=== PATIENT | female | born 1995 | race Caucasian/White ===

== ENCOUNTER → 2017-10-10 09:13 | Outpatient (CLI) | payer BC, SELFPAY ==
--- NOTE | 2017-10-10 09:18 | RAD_ITS ---
STUDY: X-RAY - RIGHT WRIST REASON FOR EXAM: Female, 21 years old. Strain TECHNIQUE: 3 view(s) of the wrist were obtained. COMPARISON: Prior study of 06/08/2013 FINDINGS: Normal visualized distal radius and ulna. Normal radiocarpal articulation. Normal distal radioulnar articulation. Normal carpal bones. Normal carpal articulations. Normal carpometacarpal articulation of the thumb. Normal second through fifth carpometacarpal articulations. Normal visualized metacarpal bones. The soft tissue structures are unremarkable. RAD/Wrist min 3 Views IMPRESSION: Normal x-ray examination of the wrist. Electronically Signed: Deshawn Norman MD at 17:44 EDT , Service support ,
--- NOTE | 2017-10-10 09:18 | RAD_ITS ---
STUDY: X-RAY - LEFT WRIST REASON FOR EXAM: Female, 21 years old. Strain TECHNIQUE: 3 view(s) of the wrist were obtained. COMPARISON: None. FINDINGS: Normal visualized distal radius and ulna. Normal radiocarpal articulation. Normal distal radioulnar articulation. Normal carpal bones. Normal carpal articulations. Normal carpometacarpal articulation of the thumb. Normal second through fifth carpometacarpal articulations. Normal visualized metacarpal bones. The soft tissue structures are unremarkable. RAD/Wrist min 3 Views IMPRESSION: Normal x-ray examination of the wrist. Electronically Signed: Deshawn Norman MD at 16:56 EDT , Service support ,
== END ==
PROVIDERS: Family Provider Internal Medicine; PCP Internal Medicine; Visit Provider Internal Medicine
DX: M25.539 Pain in unspecified wrist (principal)
CPT/HCPCS: 73110

== ENCOUNTER → 2018-01-13 16:40 | Outpatient (CLI) | payer BC, SELFPAY ==
--- NOTE | 2018-01-13 14:45 | BRBX_PTH ---
PATIENT: ELLEN BENOIT LOC: [facility] U#:[id number] AGE/SX: 29/F ROOM: RE01/13/[address]: Dr. Vin Moore MD : 1995 BED: DIS: SPEC #: [id number] RECD: 01/14/18 08:01 STATUS: KRISTAN SORAYA #: [id number] APURVA: 01/13/18 14:[address]: Vin Moore DEPT: SURGICAL PATHOLOGY RECD BY: Russell Albarado ENTERED: 01/14/18 08:02 SP TYPE: BREAST BX OTHR DR: Dr. Samira Johnson DO Tissues: Left breast, NOS Procedures: Surgery Specimen Level IV HEADER OPERATION: Left breast core biopsy PRE-OP DIAGNOSIS: Left breast abnormal ultrasound TISSUE SUBMITTED: Left breast tissue ISHCMIC TIME: <1 minute FIXATION TIME: 28 hours MICROSCOPIC DIAGNOSIS Left breast, ultrasound-guided core biopsy: Fibroadenoma. AM:bradley 01/16/18 MICROSCOPIC DESCRIPTION Slides are reviewed. GROSS DESCRIPTION Received in fixative is one container labeled with the patient's name and designated left breast. The specimen consists of multiple elongated fragments of benitez soft tissue that in aggregate measure 1 x 0.2 x 0.2 cm. The specimen is totally submitted in one cassette. / AM:bradley 01/14/18 TC:5 CPT: 02193
== END ==
PROVIDERS: Family Provider Internal Medicine; PCP Internal Medicine; Visit Provider Surgery
DX: R92.8 Other abnormal and inconclusive findings on diagnostic imaging of breast (principal)
CPT/HCPCS: 88305

== ENCOUNTER → 2018-02-18 15:23 | Outpatient (CLI) | payer BC, SELFPAY ==
--- NOTE | 2018-02-18 15:27 | RAD_ITS ---
STUDY: X-RAY - PELVIS AND LEFT HIP REASON FOR EXAM: Left hip pain. TECHNIQUE: Radiological exam, hip, unilateral, with pelvis when performed; 2 or 3 views. COMPARISON: Radiographs 05/08/2013. FINDINGS: Normal visualized soft tissue structures. Normal bilateral iliac wings, sacroiliac joints and visualized sacrum. Normal bilateral superior and inferior pubic rami. Normal pubic symphysis. Normal bilateral ischial tuberosities. There are suspected postoperative changes from left femoral osteochondroplasty. Normal acetabulum. Normal hip joint. IMPRESSION Unremarkable postoperative x-ray examination of the pelvis and left hip. Electronically Signed: Abel Headley MD at 15:11 EDT Tel , Service support , RAD/HIP, UNI W/ Pelvis 2-3 Views
== END ==
PROVIDERS: Family Provider Internal Medicine; PCP Internal Medicine; Visit Provider Physician Assistant
DX: M25.552 Pain in left hip (principal)
CPT/HCPCS: 73502

== ENCOUNTER 2018-02-22 12:01 | Emergency (ER) | payer BC, SELFPAY ==
[2018-02-22 12:01] VITALS: BP 126/104; PULSE 100; RESP 24; TEMP 36.6; O2SAT 97; BMI 40.3
--- NOTE | 2018-02-22 12:18 | RAD_ITS ---
STUDY: X-RAY - LEFT RADIUS AND ULNA REASON FOR EXAM: Female, 22 years old. History of dog bite of the forearm. TECHNIQUE: 2 view(s) of the forearm. COMPARISON: None. FINDINGS: Is soft tissue swelling of the border aspect of the distal forearm. Normal visualized radius. Normal visualized ulna. RAD/Forearm 2 Views IMPRESSION: Soft tissue swelling. No demonstrated acute osseous changes. Electronically Signed: Syed Ahmadi MD at 13:48 EDT Tel , Service support ,
--- NOTE | 2018-02-22 12:29 | ED.DCSUM_ITS ---
- ER Visit Summary Date of Service: 02/22/18 Chief Complaint: Dog bite History of Present Illness: The patient is a 22 F who presents with a dog bite. She was dog sitting when 1 of the dogs bit her on the left arm. She sustained 2 puncture wounds on the ulnar wrist area and a larger wound in the mid radial forearm area. The patient's immunizations are up-to-date except for tetanus. The dogs are domesticated and they are checking with the dog metal caster to make sure that they are vaccinated appropriately. Patient does have pain throughout the forearm. Physical Examination: Vital signs are reviewed. Left forearm exam reveals puncture wounds on the ulnar portion of the left wrist area. She also has a 3 cm laceration on the radial mid forearm area. Her form is diffusely tender. Test Results: Forearm x-ray reveals no foreign bodies or bony abnormalities Emergency Department Course and Treatment: The patient was updated with her tetanus. She was given oxycodone for pain. The 2 dog bites near the wrist will be left alone and dressed. The gaping wound on the midforearm was repaired with 3 nylon sutures. She will have these out in 7-10 days. She will be placed on Augmentin and given naproxen for pain. We will follow-up with her PCP Treatment Plan: [] Disposition: Discharge Impression: Multiple dog bite, left forearm, laceration repair This note was generated with [employer] dictation software. It may contain incorrect words, spelling, and punctuation that were not noted in review of the chart prior to signing ED Disposition - Plan for ED Patient: Chief Complaint: Bite Referrals: Samira Johnson DO [Primary Care Provider] -
[2018-02-22] MEDS: Diphth,Pertuss(Acell),Tet Vac 0.5 ML Vial IM (12:39)
[2018-02-22] MEDS: oxyCODONE 5 MG Tablet PO (12:40)
--- NOTE | 2018-02-22 14:18 | ED.DEP ---
ED Disposition - Plan for ED Patient: Disposition: Home or Assisted Living Chief Complaint: Bite Instructions: ED Bite Dog Prescriptions: Amox/Clavulanate Tablet [Augmentin Tablet] 875 mg PO Q12H #20 tab Naproxen [Naprosyn] 500 mg PO BID PRN #20 tab Referrals: Samira Johnson DO [Primary Care Provider] -
[2018-02-22 14:30] VITALS: BP 121/87; PULSE 62; RESP 16; O2SAT 97
== END 2018-02-22 14:36 | disposition home or self-care (01) ==
PROVIDERS: Emergency Provider Emergency Medicine; Family Provider Internal Medicine; PCP Internal Medicine
DX: S51.832A Puncture wound without foreign body of left forearm, initial encounter (principal); W54.0XXA Bitten by dog, initial encounter; Y93.9 Activity, unspecified; Y92.89 Other specified places as the place of occurrence of the external cause; Y99.9 Unspecified external cause status
CPT/HCPCS: 12002; 73090; 90471; 90715; 99283

== ENCOUNTER → 2018-02-26 12:18 | Outpatient (CLI) | payer BC, SELFPAY | PROVIDERS: Visit Provider Nurse Practitioner | DX: A49.02 Methicillin resistant Staphylococcus aureus infection, unspecified site (principal); W54.0XXS Bitten by dog, sequela | CPT/HCPCS: 87070; 87205 ==

== ENCOUNTER 2018-04-10 16:30 | Outpatient (RCR) | payer BC, SELFPAY ==
--- NOTE | 2018-02-25 17:26 | HP.PTEVAL ---
Patient's Visit Information ELLEN AU is a 22 year old F referred to Physical Therapy by Hafsa Moya DO with a diagnosis of L hip synovitis,psoas tendonitis. Date of Evaluation: 02/25/18 Physical Therapist: Ashish Schaeffer DPT, OC - Visit Plan Frequency: 2-3x /Week Duration: 4-6 Weeks Plan: 2-3x/week for 3-4 weeks, start with two weeks for nonthermal US to L psoas, CFM to same, stretch to L psoas and rollout and stretch to L quad. start eccentric strength/core strength as tolerated and progress HEP. Pt not want ionto today as insurance does not cover it, will try without it and consider in two weeks if not improving. - Subjective Subjective: Having problems in hip after sitting long time and standing and it would cramp up. Happened at [facility] crawl but not sure how. Was jumping in waves in December and it hurt bad at the beach. H/o hip surgery z cut to iliopsoas tendon and cleaned out chip and femur in 2012. Was 100% until this November. This pain is in L groin. Pain is intermittent after sitting and trying to stand up. 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 Goes away as she moves. Sleep is OK. Activities are pretty normal, hurts to do a deep squat. Exercises are none. Basic ADLs are good. 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 - Pain L groin Pain Intensity (Out of 10): 0 Pain Intensity Range: 0, 4 - Objective L anterior hip is tender overiliopsoas tendon sharply and moderately. Active contraxtion of hip flexors is painful and weak at 3+, other hip muscles 4- and without pain. AROM hip is WNL except extension is 4 degrees B actively and passively and feels tight. Strength and ROM knees and ankles 4+/5 and WNL. reflexes 1/3 patella and achilles. Walks well and steps reciprocal without pain today. Getting up out of chair gives some sharper pain transiently. + NANCY L and very + FADDIR passively.- scour L - Goals Goal 1:: Full AROM hip extension without pain and no sharp tenderness to palpation L psoas. Goal Time Frame: 4-6 Weeks Goal 2:: Pt report 75% improvement in overall condition and pain 1/10 at worst Goal Time Frame: 4-6 Weeks Goal 3:: Pt I in overall hip stretch adn strengthen to minimize future problems. Goal Time Frame: 4-6 Weeks - Rehabilitation Potential Physical Therapy Diagnosis: L psoas tendonitis. Rehabilitation Potential: Fair - Anticipated Interventions Patient/Client Instruction: Educate patient on: Condition, Plan of Care For the Purpose of:: To decrease pain, To decrease swelling/inflammation, To increase ROM Therapeutic Exercise to Include: Strength training, Flexibilty training, Passive ROM, Active ROM For the Purpose of:: To decrease pain, To decrease swelling/inflammation, To increase ROM, To improve nutrient delivery to tissue, To improve ability of physical actions for home/community/work/leisure Comment: CFM psoas L For the Purpose of:: To decrease swelling/inflammation, To improve nutrient delivery to tissue Ultrasound (thermal/non thermal): Yes - nonthermal L psoas For the Purpose of:: To decrease pain, To decrease swelling/inflammation Thank you for the opportunity to evaluate your patient. For Medicare and Medicare HMO plans, please review the plan of care and approve it. It will need to be FAXED BACK to us at [phone] for Medicare purposes. Please let me know if there are questions or concerns regarding this plan of care. Physician Signature: Date:
--- NOTE | 2018-04-10 16:56 | HP.PTDCSUM_ITS ---
HP - PT D/C Summary It has been my pleasure to treat ELLEN AU under orders from Hafsa Moya DO, for the diagnosis of L hip synovitis,psoas tendonitis for a total of 8 visit(s). Discharge Date: 04/10/18 Please see the following information for a summary of their discharge status. - Subjective Subjective: Hip is good. I started working out. Walking at 2.8 mph vs normal 3.6 mph(6 sessions). Soreness in same spot with walking sore just for the night. Doing strengthening starting slowly at the hip. Slowly improving with gentle workout. No f/u with Dr. Bauer. Sleep OK. - Pain L groin Pain Intensity (Out of 10): 0 - Overall Improvement % Improvement: 80 - Objective Objective/Function: Walks and steps without pain or antalgia. sal and rec overs normally. SLR is painfree. Tenderness remains in hip flexor region but most noteable is pain with IR of L hip transiently but suspiciously of labral pathology.Recommended patient continue with HEP and stretches and [employer] workout and let doctor know if pain returns. - Goals Goal 1:: Full AROM hip extension without pain and no sharp tenderness to palpation L psoas. Goal Progress: Goal Met Goal 2:: Pt report 75% improvement in overall condition and pain 1/10 at worst Goal Progress: Goal Met Goal 3:: Pt I in overall hip stretch adn strengthen to minimize future problems. Goal Progress: Goal Met - Plan Plan: D/C to HEP adn pt to call doctor if pain returns. - D/C Information Discharge Comments: Pt doing well and is slowly working back to full [employer] workout. Has some pain with IR at hip suspicious of labral pathology but doing well. Is to contact doctor if pain returns. If there are questions or concerns regarding this patient's physical therapy, please feel free to call me at [phone]. Thank you for the referral of this patient. Sincerely, Ashish Schaeffer, DPT, OC
== END 2018-04-10 19:00 | disposition home or self-care (01) ==
LOC: PT 16:30
PROVIDERS: Family Provider Internal Medicine; PCP Internal Medicine; Visit Provider Orthopaedic Surgery
DX: M67.352 Transient synovitis, left hip (principal); M76.12 Psoas tendinitis, left hip
CPT/HCPCS: 97035; 97110; 97140; 97162; 97530

== ENCOUNTER → 2018-07-10 15:31 | Outpatient (CLI) | payer BC, SELFPAY ==
--- NOTE | 2018-07-10 15:34 | RAD_ITS ---
STUDY: X-RAY - RIGHT KNEE REASON FOR EXAM: Female, 22 years old. TECHNIQUE: 4 view(s) of the knee. COMPARISON: None. FINDINGS: Normal visualized distal femur. Normal visualized proximal tibia and fibula. Normal proximal tibiofibular articulation. Normal medial femorotibial compartment. Normal lateral femorotibial compartment. Normal patellofemoral articulation. The soft tissue structures are unremarkable. RAD/Knee 4 or More Views IMPRESSION: Normal x-ray examination of the knee. Electronically Signed: Tim Schaffer, at 16:49 EST Tel , Service support ,
--- NOTE | 2018-07-10 15:35 | RAD_ITS ---
HISTORY: PPainRAD-EXT/JT COMPARISON: None FINDINGS: XR left Knee Complete 4 Views or More: Weightbearing No fracture or bony abnormality. Joint spaces are preserved. No osteochondral defects. A fabella is present. No joint effusion. As visualized, the soft tissues are negative. RAD/Knee 4 or More Views IMPRESSION: Normal exam, left knee. at 0408 Reported and signed by: Nikko Ca MD Electronically Signed: Nikko Ca, at 4:07 EST Tel , Service support ,
--- NOTE | 2018-07-10 15:35 | RAD_ITS ---
STUDY: X-RAY - LEFT ANKLE REASON FOR EXAM: Female, 22 years old. TECHNIQUE: 3 view(s) of the ankle. COMPARISON: None. FINDINGS: Normal visualized distal tibia and fibula. Normal medial and lateral malleoli. Normal tibiotalar articulation and ankle mortise. Normal visualized talus and calcaneus. The visualized subtalar, talonavicular, calcaneocuboid and tarsal articulations are normal. The ankle mortise is unremarkable. The soft tissue structures are unremarkable. Minimal plantar heel spur present. RAD/Ankle min 3 Views IMPRESSION: Minimal plantar heel spur the study is otherwise negative. Electronically Signed: Tim Schaffer, at 16:44 EST Tel , Service support ,
== END ==
PROVIDERS: Family Provider Internal Medicine; PCP Internal Medicine; Referring Provider Internal Medicine; Visit Provider Internal Medicine
DX: M25.561 Pain in right knee (principal); M25.562 Pain in left knee; M25.572 Pain in left ankle and joints of left foot
CPT/HCPCS: 73564; 73610

== ENCOUNTER 2018-12-12 05:21 | Day surgery (SDC) | payer BC, SELFPAY ==
[2018-10-20 16:21] VITALS: BMI 40.3
[2018-11-19 14:55] VITALS: BMI 40.3
--- NOTE | 2018-11-19 15:26 | HP_ITS ---
Intake Vital Signs 11/19/18 Body Mass Index (BMI) 40.3 11/19/18 Height 5 ft 6 in 11/19/18 Weight: 250 lb 11/19/18 Body Mass Index (BMI) 40.3 11/19/18 Blood Pressure 117/73 11/19/18 Blood Pressure Location Rt brachial 11/19/18 Blood Pressure Position Sitting 11/19/18 Respiratory Rate 14 11/19/18 Pulse Rate 80 11/19/18 Pulse Source Monitor 11/19/18 Temperature 98.3 F 11/19/18 Temperature Source Oral 11/19/18 Pulse Ox 98 11/19/18 Oxygen Delivery Method room air Intake Visit Reasons: Update H & P RC 12/12 Allergies acetaminophen [From Vicodin] Allergy (Unknown, Verified 10/20/18 16:23) Unknown hydrocodone [From Vicodin] Allergy (Unknown, Verified 10/20/18 16:23) Unknown Medications sumatriptan 25 mg tablet 25 mg PO ONCE 01/13/18 [History Confirmed 10/20/18] Norethindrone-E.estradiol-Iron [Microgestin Fe 1-20 Tablet] 1 tab PO DAILY 02/22/18 [History Confirmed 10/20/18] PFSH Medical History Breast mass, left (Acute) history left hip surgery (Acute) Abnormal mammogram of left breast (Acute) Left breast lump (Acute) Surgical History Hx of left breast biopsy (Acute) History of tonsillectomy (Acute) Family History Father Asthma Hypertension Diabetes Cancer prostate cancer Grandmother Colon cancer Mother High cholesterol Grandfather Cancer multiple myeloma Social History Smoking Status: Never smoker alcohol intake: never substance use type: does not use HPI HPI HPI: ELLEN AU, is a 22 F who presents to the office today for HPI HPI Surgical H&P: Yes HPI: ELLEN AU, is a 22 F who presents to the office today for an update history and physical. Patient denies recent hospitalizations or illnesses. Patient denies any changes in medications. She denies any complications with anesthesia previously. Patient's previous history per Dr. Moore: ELLEN AU, is a 22 F who presents to the office today for surgical consultation regarding a enlarging upper outer quadrant left breast mass. January 13, 2018 I performed an ultrasound-guided needle core biopsy of this area. Pathology was consistent with fibroadenoma. 22-year-old female. A0. The patient has detected enlargement. On October 15, 2018 at the [facility] a left breast ultrasound was obtained demonstrating a 4 x 3.1 x 4.1 cm oval mass left breast 1 o'clock position +9 cm. Because of the 20% increase in size it is felt to be suspicious and excision is recommended. The patient has not had any nipple discharge or bleeding. 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 She otherwise enjoys good health. ROS General General: No weight change, appetite, fatigue, colon cancer, breast cancer or weakness HEENT HEENT: No difficulty swallowing, eye injury, eye surgery, swollen glands or hoarseness Endo Endocrine: No thyroid disease, diabetes mellitus, thyroid cancer, Hair loss, heat intolerance or cold intolerance Skin Skin: No rash or changing moles Breast Breast: Yes left breast lump, abnormal mammogram and abnormal US; no right breast lump, nipple discharge, breast pain (tenderness) or breast enlargement Musc Musculoskeletal: No back problems, arthritis, rheumatoid arthritis, gout or joint pain Cardio Cardiovascular: No murmur, pacemaker, heart disease, atrial fibrillation, high blood pressure, heart attack, heart stent, palpitations, shortness of breat with exertion or chest pain Psych Psychiatric: No depression, anxiety or hearing voices Resp Respiratory: No shortness of breath, No sleep apnea, No cough, No COPD, No asthma, No emphysema, No wheezing Gastro Gastrointestinal: No abdominal pain, No nausea or vomiting, No diarrhea, No constipation, No blood in stool, No acid reflux, No hemorrhoids, No ulcers, No gallbladder problem, No black,tarry stools Jh Hematologic: No blood thinners, No blood disorders, No bleeding, No anemia, No blood clots Neuro Neurologic: No weakness Exam Const General: cooperative, healthy appearing, comfortable, no acute distress [facility] Head: normal to inspection Ears: hearing grossly normal bilaterally Eyes General: appearance normal, both eyes and all related structures Neck Neck: normal visual inspection Neck mass: No Chest Breast Palpation: No nipple discharge Other: Left breast with palpable mass upper outer region at 1 o'clock. Resp Effort & Inspection: normal respiratory effort Auscultation: clear to auscultation bilaterally Cardio Rate: regular rate Rhythm: regular rhythm Heart Sounds: no murmurs GI Inspection: normal to inspection Palpation: soft Auscultation: normal bowel sounds Skin General: no rashes or lesions noted Extrem General: normal to inspection Psych Appearance: grossly normal Affect: normal affect Assessment & Plan Problems 1. Left breast lump N63.[address] Moore will plan to perform an excision of left breast mass under general anesthesia. Procedure details, risks and benefits were reviewed. Patient has had the opportunity to ask and have questions answered. Patient verbally understands and agrees with the proposed procedure. Coding Level of Care Code No Charge Diagnoses Left breast lump N63.20 Comment Update H&P 11/19/18 1526 <Electronically signed by Lila Flaherty PA-C> Date Lila Flaherty PA-C
[2018-12-12 05:43] VITALS: BP 124/72; PULSE 79; RESP 16; TEMP 36.8; O2SAT 100; BMI 39.9
[2018-12-12 05:47] LABS: Internal QC Validated? YES +Cl - CLEAR BKGD; Pregnancy, Urine Negative Negative
--- NOTE | 2018-12-12 06:06 | PCM.HP.BLA ---
Problem List (1) Breast mass, left Status: Acute History and Physical Date of Admission: 12/12/18 Intake Vital Signs 11/19/18 Body Mass Index (BMI) 40.3 11/19/18 Height 5 ft 6 in 11/19/18 Weight: 250 lb 11/19/18 Body Mass Index (BMI) 40.3 11/19/18 Blood Pressure 117/73 11/19/18 Blood Pressure Location Rt brachial 11/19/18 Blood Pressure Position Sitting 11/19/18 Respiratory Rate 14 11/19/18 Pulse Rate 80 11/19/18 Pulse Source Monitor 11/19/18 Temperature 98.3 F 11/19/18 Temperature Source Oral 11/19/18 Pulse Ox 98 11/19/18 Oxygen Delivery Method room air Intake Visit Reasons: Update H & P RC 12/12 Allergies acetaminophen [From Vicodin] Allergy (Unknown, Verified 10/20/18 16:23) Unknown hydrocodone [From Vicodin] Allergy (Unknown, Verified 10/20/18 16:23) Unknown Medications sumatriptan 25 mg tablet 25 mg PO ONCE 01/13/18 [History Confirmed 10/20/18] Norethindrone-E.estradiol-Iron [Microgestin Fe 1-20 Tablet] 1 tab PO DAILY 02/22/18 [History Confirmed 10/20/18] PFSH Medical History Breast mass, left (Acute) history left hip surgery (Acute) Abnormal mammogram of left breast (Acute) Left breast lump (Acute) Surgical History Hx of left breast biopsy (Acute) History of tonsillectomy (Acute) Family History Father Asthma Hypertension Diabetes Cancer prostate cancer Grandmother Colon cancer Mother High cholesterol Grandfather Cancer multiple myeloma Social History Smoking Status: Never smoker alcohol intake: never substance use type: does not use HPI HPI HPI: ELLEN AU, is a 22 F who presents to the office today for HPI HPI Surgical H&P: Yes HPI: ELLEN AU, is a 22 F who presents to the office today for an update history and physical. Patient denies recent hospitalizations or illnesses. Patient denies any changes in medications. She denies any complications with anesthesia previously. Patient's previous history per Dr. Moore: ELLEN AU, is a 22 F who presents to the office today for surgical consultation regarding a enlarging upper outer quadrant left breast mass. January 13, 2018 I performed an ultrasound-guided needle core biopsy of this area. Pathology was consistent with fibroadenoma. 22-year-old female. A0. The patient has detected enlargement. On October 15, 2018 at the [facility] a left breast ultrasound was obtained demonstrating a 4 x 3.1 x 4.1 cm oval mass left breast 1 o'clock position +9 cm. Because of the 20% increase in size it is felt to be suspicious and excision is recommended. The patient has not had any nipple discharge or bleeding. 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 She otherwise enjoys good health. ROS General General: No weight change, appetite, fatigue, colon cancer, breast cancer or weakness HEENT HEENT: No difficulty swallowing, eye injury, eye surgery, swollen glands or hoarseness Endo Endocrine: No thyroid disease, diabetes mellitus, thyroid cancer, Hair loss, heat intolerance or cold intolerance Skin Skin: No rash or changing moles Breast Breast: Yes left breast lump, abnormal mammogram and abnormal US; no right breast lump, nipple discharge, breast pain (tenderness) or breast enlargement Musc Musculoskeletal: No back problems, arthritis, rheumatoid arthritis, gout or joint pain Cardio Cardiovascular: No murmur, pacemaker, heart disease, atrial fibrillation, high blood pressure, heart attack, heart stent, palpitations, shortness of breat with exertion or chest pain Psych Psychiatric: No depression, anxiety or hearing voices Resp Respiratory: No shortness of breath, No sleep apnea, No cough, No COPD, No asthma, No emphysema, No wheezing Gastro Gastrointestinal: No abdominal pain, No nausea or vomiting, No diarrhea, No constipation, No blood in stool, No acid reflux, No hemorrhoids, No ulcers, No gallbladder problem, No black,tarry stools Jh Hematologic: No blood thinners, No blood disorders, No bleeding, No anemia, No blood clots Neuro Neurologic: No weakness Exam Const General: cooperative, healthy appearing, comfortable, no acute distress [facility] Head: normal to inspection Ears: hearing grossly normal bilaterally Eyes General: appearance normal, both eyes and all related structures Neck Neck: normal visual inspection Neck mass: No Chest Breast Palpation: No nipple discharge Other: Left breast with palpable mass upper outer region at 1 o'clock. Resp Effort & Inspection: normal respiratory effort Auscultation: clear to auscultation bilaterally Cardio Rate: regular rate Rhythm: regular rhythm Heart Sounds: no murmurs GI Inspection: normal to inspection Palpation: soft Auscultation: normal bowel sounds Skin General: no rashes or lesions noted Extrem General: normal to inspection Psych Appearance: grossly normal Affect: normal affect Assessment & Plan Problems 1. Left breast lump N63.[address] Moore will plan to perform an excision of left breast mass under general anesthesia. Procedure details, risks and benefits were reviewed. Patient has had the opportunity to ask and have questions answered. Patient verbally understands and agrees with the proposed procedure. Coding Level of Care Code No Charge Diagnoses Left breast lump N63.20 Comment Update H&P 11/19/18 152 <Electronically signed by Lila Flaherty PA-C> Date Lila Flaherty PA-C 11/20/18 0927 <Electronically signed by Lila Flaherty PA-C> Date: Time: Lila Flaherty PA-C CC: Lila Flaherty PA-C; Samira Johnson DO ~ Date Dictated: 11/19/18 152 Date Transcribed: 11/20/18 0074 [employer]: Signed I have re-examined the patient. There are no clinical changes since date of exam
--- NOTE | 2018-12-12 07:15 | BREAST_PTH ---
PATIENT: ELLEN [place]ENOIT [place] [facility] [id number] AGE/SX: 23/ ROOM: RE12/12/[address]: Dr. Vin Moore MD : 1995 BED: DIS: 12/12/2018 SPEC #: [id number] RECD: 12/12/18 15:23 STATUS: KRISTAN REEamon #: [id number] APURVA: 12/12/18 07:[address]: Vin Moore DEPT: SURGICAL PATHOLOGY RECD BY: Rama Foss ENTERED: 12/15/18 09:08 SP TYPE: BREAST OTHR DR: Dr. Samira Johnson, DO Tissues: Left breast, NOS Procedures: Surgery Specimen Level IV HEADER OPERATION: Excisional breast biopsy, no needle location PRE-OP DIAGNOSIS: Left breast lump TISSUE SUBMITTED: Left breast lump MICROSCOPIC DIAGNOSIS Left breast lump, excisional biopsy: Fibroadenoma. Negative for atypia or malignancy. See comment. RORY:bradley 12/16/18 COMMENT The lesion appears to be completely excised. Please make reference to previous specimen ([id number]), left breast, ultrasound-guided core biopsy with diagnosis of fibroadenoma. Case has been reviewed in consultation with Dr. Thorne who concurs with the above diagnosis. IDC:AM MICROSCOPIC DESCRIPTION Slides are reviewed. GROSS DESCRIPTION Received in fixative is one container labeled with the patient's name and designated left breast lump. The specimen consists of an irregular fragment of lobulated pink-white soft tissue measuring 8 x 4 x 3.3 cm and weighing 37.5 gm. The external surface is inked and the specimen is serially sectioned to reveal a homogenous white-benitez cut surface without areas of cyst formation, necrosis or hemorrhage. Medication Specialist sections are submitted in six cassettes. / AM:bradley 12/15/18 TC:1 CPT: 79642
--- NOTE | 2018-12-12 07:21 | DCINST_ITS ---
Discharge Diet: No Restrictions Discharge Activity: Return to Normal Activity May shower in (days): 1 Allergies/Adverse Reactions: Allergies hydrocodone [From Vicodin] Allergy (Unknown, Verified 12/05/18 15:12) Unknown band aids Allergy (Uncoded 12/05/18 15:13) Rash Medications to take at Discharge sumatriptan 25 mg tablet 25 mg PO ONCE 01/13/18 Norethindrone-E.estradiol-Iron [Microgestin Fe 1-20 Tablet] 1 tab PO DAILY 02/22/18 traMADol [Ultram] 50 mg PO Q4H PRN PRN 2 Days #8 tablet 12/12/18 The following prescriptions were given: traMADol [Ultram] 50 mg PO Q4H PRN PRN 2 Days #8 tablet PRN Reason: Pain Primary Care Physician: Samira Johnson DO [Primary Care Provider] - Test Results: Test results from this visit will be discussed in further detail at your follow- up appointment, if applicable. Please Follow Up With: Vin Moore MD - [phone] When: Please call for an appointment to be seen in one week.
[2018-12-12] MEDS: Bupivacaine Mpf 0.5% 30 ML VIAL (07:49)
--- NOTE | 2018-12-12 08:02 | PCM.OPRPT ---
Problem List (1) Breast mass, left Status: Acute Report of Operation Date of Procedure: 12/12/18 Pre-Operative Diagnosis: Upper outer quadrant left breast mass, suspected fibroadenoma Post-Operative Diagnosis: Same Surgery/Procedure Performed:: Upper outer quadrant left breast mass excision Description of Surgical Findings:: Timeout and informed consent was obtained. 23-year-old female was taken to the operating room placed on the table. She underwent general anesthesia. The upper outer quadrant of the left breast was sterilely prepped and draped. A slightly curvilinear incision was made in the high upper outer quadrant of the left breast. Electrocautery dissection was performed. A quite sizable mass was encountered. A holding suture of 0 Vicryl was placed. Traction was applied. The mass was circumferentially completely excised. Care was taken to preserve as much [place] breast tissue as possible. Electrocautery was used for hemostasis. The mass was excised there was no visible or palpable residual disease. The mass had been excised down to its capsule. It was submitted in formalin. The cavity was inspected and made hemostatic with electrocautery and a total 30 cc of 0.5% Marcaine was used as local anesthetic. The subcutaneous tissues were approximated with interrupted 3-0 Vicryl. The skin edges approximated with a running septic or 4-0 Monocryl. Steri-Strips Telfa OpSite dressings applied. Acute dressing applied. Sponge and instrument and needle counts were reported to the surgeon be correct. Blood loss was minimal. She tolerated the procedure well and was taken to the recovery room in satisfactory condition without apparent complication. Specimen breast mass. Drains none. Blood loss minimal. Vin Moore M.D., F.A.C.S. Type of Anesthesia:: General Anesthesiologist: Anibal Long - Admit VTE Documentation VTE Present on Admission: No VTE Mechan Device Prophylaxis: SCD's
[2018-12-12 08:15] VITALS: BP 124/72; BP 127/72; PULSE 75; RESP 18; TEMP 36.2; O2SAT 96
[2018-12-12 08:30] VITALS: BP 122/66; BP 124/72; PULSE 65; RESP 16; O2SAT 100
[2018-12-12 08:45] VITALS: BP 108/84; BP 124/72; PULSE 73; RESP 16; TEMP 36; O2SAT 100
[2018-12-12 09:21] VITALS: BP 112/68; BP 124/72; PULSE 68; RESP 18; TEMP 36.1; O2SAT 98
== END 2018-12-12 09:30 | disposition home or self-care (01) ==
LOC: SDC 05:22 → AC 05:23
PROVIDERS: Anesthesiology; Family Provider Internal Medicine; PCP Internal Medicine; Referring Provider Surgery; Visit Provider Surgery
PROC: (CPT 19120; principal; 2018-12-12 07:00)
DX: D24.2 Benign neoplasm of left breast (principal); Z88.5 Allergy status to narcotic agent
CPT/HCPCS: 19120; 81025; 88305; 88307; J7120; J2405

== ENCOUNTER → 2020-09-23 15:42 | Outpatient (CLI) | payer BC, SELFPAY ==
--- NOTE | 2020-09-23 15:47 | RAD_ITS ---
STUDY: X-RAY - LEFT KNEE REASON FOR EXAM: Female, 24 years old. CREPITUS OF BOTH KNEE JOINTS TECHNIQUE: 4 view(s) of the knee. COMPARISON: None. FINDINGS: Normal visualized distal femur. Normal visualized proximal tibia and fibula. Normal proximal tibiofibular articulation. Normal medial femorotibial compartment. Normal lateral femorotibial compartment. Normal patellofemoral articulation. The soft tissue structures are unremarkable. RAD/Knee 4 or More Views IMPRESSION: Normal x-ray examination of the knee. Electronically Signed: Mikhail Garrett MD at 16:11 EST Tel , Service support ,
--- NOTE | 2020-09-23 15:47 | RAD_ITS ---
STUDY: X-RAY - RIGHT KNEE REASON FOR EXAM: Female, 24 years old. CREPITUS OF BOTH KNEE JOINTS TECHNIQUE: 3 view(s) of the knee. COMPARISON: July 10, 2018 right knee x-ray FINDINGS: Normal visualized distal femur. Normal visualized proximal tibia and fibula. Normal proximal tibiofibular articulation. There is mild degenerative arthrosis of the medial femorotibial compartment. The narrowing is more apparent on weightbearing in the medial compartment. Worse than prior study. Normal lateral femorotibial compartment. There is mild degenerative arthrosis of the patellofemoral articulation. The soft tissue structures are unremarkable. RAD/Knee 4 or More Views IMPRESSION: Arthrosis more apparent with weightbearing medial compartment and worse since July 10, 2018. Mild arthrosis patellofemoral compartment. No visualized acute fracture. Electronically Signed: Mirta Rizvi MD at 6:31 EST Tel , Service support ,
== END ==
PROVIDERS: PCP Family Medicine; Referring Provider Family Medicine; Visit Provider Family Medicine
DX: M23.8X1 Other internal derangements of right knee (principal); M23.8X2 Other internal derangements of left knee
CPT/HCPCS: 73564

== ENCOUNTER → 2020-09-27 16:34 | Outpatient (CLI) | payer BC, SELFPAY ==
[2020-09-27 17:56] LABS: Absolute Lymphocyte Count 2.76 X10^3/uL (0.83-4.51); Absolute Neutrophil Count 5.4 X10^3/uL (2.0-7.7); Basophil# 0.07 X10^3/uL; Basophil% 0.8 % (0-1); Eosinophil# 0.16 X10^3/uL; Eosinophils% 1.8 % (0-5); Hematocrit 40.6 % (37-47); Hemoglobin 13.2 g/dL (12.0-15.0); Lymphocyte # 2.76 X10^3/ul (4.0); Lymphocyte % 30.8 % (19-41); Mean Corp Hgb Conc 32.5 g/dL (32-36); Mean Corpuscular Hgb 26.3 pg (27.0-32.0); Mean Corpuscular Volume 80.9 fL (81-99); Mean Platelet Vol. 11.8 fl (6.2-12.0); Monocyte# 0.55 X10^3/uL; Monocyte% 6.1 % (0-10); NRBC Flagged by Analyzer 0 % (0-5); Neutrophil # 5.37 X10^3/uL (2.7-7.7); Neutrophil % 60.1 % (47-70); Platelet Count 318 K/mm3 (150-450); RBC Distribution Width CV 13.1 % (11.6-14.6); RBC Distribution Width SD 37.8 fl (35.1-43.9); Red Blood Count 5.02 M/mm3 (4.2-5.4)
[2020-09-27 18:23] LABS: ALB/GLOB Ratio 1.1 RATIO (0.9-2.4); AST(SGOT) 21 U/L (15-37); Alanine Aminotransfer ALT/SGPT 39 U/L (13-56); Albumin, Serum 3.7 g/dL (3.2-5.0); Alkaline Phosphatase 120 U/L (45-117); Anion Gap 6 (5-15); BUN 10 mg/dL (7-18); Calcium,Total 8.9 mg/dL (8.5-10.1); Chloride 105 mmol/L (98-107); Cholesterol 166 mg/dL (200); Creatinine, Serum 0.71 mg/dL (0.55-1.02); EST Glomerular Filtration Rate 106 mL/min (>60); Est Glom Filt Rate - Afr Amer 129 mL/min (>60); Globulin 3.5 g/dL (2.2-4.2); Glucose 75 mg/dL (74-106); High Density Lipoprotein 53 mg/dL; Potassium 3.8 mmol/L (3.5-5.1); Protein, Total 7.2 g/dL (6.4-8.2); Sodium Level 137 mmol/L (136-145); Thyroid Stim Hormone (TSH) 7.81 uIU/mL (0.358-3.74); Triglycerides 133 mg/dL; Very Low Density Lipoprotein 27 mg/dL (5-40)
[2020-09-29 20:18] LABS: Anti-Thyroglobulin AB < 1.0 IU/mL (0.0-0.9); Thyroglobulin, Serum Qt. 51.8 ng/mL (1.5-38.5); Thyroid Peroxidase AB 108 IU/mL (0-34)
== END ==
PROVIDERS: PCP Family Medicine; Referring Provider Family Medicine; Visit Provider Family Medicine
DX: E66.01 Morbid (severe) obesity due to excess calories (principal); E04.1 Nontoxic single thyroid nodule
CPT/HCPCS: 36415; 80053; 80061; 84432; 84439; 84443; 85025; 86376; 86800

== ENCOUNTER → 2020-10-05 16:20 | Outpatient (CLI) | payer BC, SELFPAY ==
--- NOTE | 2020-10-05 16:26 | US_ITS ---
STUDY: THYROID ULTRASOUND REASON FOR EXAM: Female, 24 years old. THY NODULE -LT PALP BY DR TECHNIQUE: Ultrasound evaluation of the thyroid was performed with real-time and static silver-scale imaging. COMPARISON: None. FINDINGS: RIGHT LOBE: The right lobe of the thyroid gland is enlarged and measures 5.7 cm x 1.7 cm x 2 cm. There is a heterogeneous echotexture. There are no demonstrated solid, cystic or complex lesions. LEFT LOBE: The left lobe of the thyroid gland is enlarged and measures 5.8 cm x 2.3 cm x 2.1 cm. There is a heterogeneous echotexture. There is a 2.3 cm x 1.7 cm x 1.7 cm hypoechoic solid nodule in the lower pole of the left lobe of the thyroid. Biopsy is recommended. ISTHMUS: The isthmus is enlarged and measures 7 mm. There is a 1.4 cm x 0.6 cm x 0.5 cm benign-appearing left cervical lymph node. US/Thyroid IMPRESSION: Diffuse enlargement of the thyroid gland. 2.3 cm x 1.7 cm x 1.2 cm solid nodule in the lower pole of the left lobe of the thyroid. Biopsy recommended. Electronically Signed: Dewayne Waters MD at 19:13 EDT , Service support ,
== END ==
PROVIDERS: PCP Family Medicine; Referring Provider Family Medicine; Visit Provider Family Medicine
DX: E04.1 Nontoxic single thyroid nodule (principal)
CPT/HCPCS: 76536

== ENCOUNTER → 2020-11-28 07:34 | Outpatient (CLI) | payer BC, SELFPAY ==
--- NOTE | 2020-11-25 14:40 | ASPS_PTH ---
PATIENT: ELLEN BENOIT LOC: [place] U#:[id number] AGE/SX: 29/F ROOM: RE11/28/[address]: Dr. Vin Moore MD : 1995 BED: DIS: SPEC #: [id number] RECD: 11/28/20 07:26 STATUS: KRISTAN SORAYA #: [id number] APURVA: 11/25/20 14:[address]: Vin Moore DEPT: CYTOLOGY RECD BY: Kendal Mac ENTERED: 11/28/20 08:25 SP TYPE: ASPIRATION OTHR DR: Dr. Sb Mora MD Tissues: Thyroid gland, NOS Procedures: Special Stain Group II Cytology Other HEADER OPERATION: Left thyroid fine needle aspiration PRE-OP DIAGNOSIS: Thyroid nodules TISSUE SUBMITTED: FNA left thyroid slides x9 DIAGNOSIS CYTOLOGY Fine needle aspiration, left thyroid nodule (smears): Follicular lesion of undetermined significance. Chronic inflammation. See comment. AM:bradley 11/28/2020 COMMENT The specimen is adequate for evaluation. CYTOLOGY STUDY Slides are reviewed. CYTOLOGY GROSS Received are nine smears labeled with the patient's name and designated per the requisition as left thyroid. Submitted for staining. / bradley 11/25/2020 TC:? CPT: 26947 ADDENDUM ADDENDUM ADDENDUM ADDENDUM ADDENDUM ADDENDUM ADDENDUM ADDENDUM ADDENDUM ADDENDUM ADDENDUM 08/01/2022 15:32 ADDENDUM 08/01/2022 15:32 ADDENDUM 08/01/2022 15:32 ADDENDUM 08/01/2022 15:32 ADDENDUM 08/01/2022 15:32 This addendum is added to incorporate an outside pathology consultation report. The case was examined at [facility] (#[id number]) and the following diagnosis was rendered. Left thyroid nodule, fine needle aspiration: Atypia of undetermined significance. Chronic lymphocytic thyroiditis. Please see complete above mentioned consultation report in EMR
[2020-11-25 15:21] VITALS: BMI 41.9
== END ==
PROVIDERS: PCP Family Medicine; Referring Provider Surgery; Visit Provider Surgery
DX: E04.1 Nontoxic single thyroid nodule (principal)
CPT/HCPCS: 88161; 88313

== ENCOUNTER → 2021-02-02 16:40 | Outpatient (CLI) | payer BC, SELFPAY ==
[2020-12-13 05:42] VITALS: BMI 41.9
[2021-02-02 18:54] LABS: T4 Free Direct 1.15 ng/dL (0.76-1.46); Thyroid Stim Hormone (TSH) 1.55 uIU/mL (0.358-3.74)
== END ==
PROVIDERS: PCP Family Medicine; Referring Provider Family Medicine; Visit Provider Internal Medicine Endocrinology, Diabetes & Metabolism
DX: E03.8 Other specified hypothyroidism (principal); E06.3 Autoimmune thyroiditis
CPT/HCPCS: 36415; 84439; 84443

== ENCOUNTER → 2021-02-14 11:05 | Outpatient (CLI) | payer BC, SELFPAY ==
[2021-02-13 15:02] VITALS: BMI 43.0
[2021-02-14 11:59] LABS: Absolute Lymphocyte Count 2.48 X10^3/uL (0.83-4.51); Absolute Neutrophil Count 5.5 X10^3/uL (2.0-7.7); Basophil# 0.04 X10^3/uL; Basophil% 0.5 % (0-1); Eosinophil# 0.15 X10^3/uL; Eosinophils% 1.7 % (0-5); Hematocrit 39.8 % (37-47); Hemoglobin 13.3 g/dL (12.0-15.0); Lymphocyte # 2.48 X10^3/ul (0.83-4.51); Lymphocyte % 28.6 % (19-41); Mean Corp Hgb Conc 33.4 g/dL (32-36); Mean Corpuscular Hgb 26.5 pg (27.0-32.0); Mean Corpuscular Volume 79.3 fL (81-99); Mean Platelet Vol. 11.5 fl (6.2-12.0); Monocyte# 0.48 X10^3/uL; Monocyte% 5.5 % (0-10); NRBC Flagged by Analyzer 0 % (0-5); Neutrophil # 5.49 X10^3/uL (2.7-7.7); Neutrophil % 63.2 % (47-70); Platelet Count 322 K/mm3 (150-450); RBC Distribution Width CV 12.7 % (11.6-14.6); RBC Distribution Width SD 36.1 fl (35.1-43.9); Red Blood Count 5.02 M/mm3 (4.2-5.4); White Blood Count 8.7 K/mm3 (4.4-11.0)
[2021-02-14 12:51] LABS: ALB/GLOB Ratio 1.1 RATIO (0.9-2.4); AST(SGOT) 32 U/L (15-37); Alanine Aminotransfer ALT/SGPT 59 U/L (13-56); Albumin, Serum 3.8 g/dL (3.2-5.0); Alkaline Phosphatase 110 U/L (45-117); Anion Gap 8 (5-15); BUN 10 mg/dL (7-18); BUN/Creat Ratio 14.9 RATIO (10-20); Calcium,Total 9.2 mg/dL (8.5-10.1); Chloride 107 mmol/L (98-107); Creatinine, Serum 0.67 mg/dL (0.55-1.02); EST Glomerular Filtration Rate 113 mL/min (>60); Est Glom Filt Rate - Afr Amer 137 mL/min (>60); Globulin 3.4 g/dL (2.2-4.2); Glucose 78 mg/dL (74-106); Magnesium 2.2 mg/dL (1.6-2.6); Potassium 3.7 mmol/L (3.5-5.1); Protein, Total 7.2 g/dL (6.4-8.2); Sodium Level 139 mmol/L (136-145)
[2021-02-14 16:09] LABS: Ferritin 102 ng/mL (8-252); Iron 77 ug/dL (50-170); Iron Binding Capacity,Total 442 ug/dL (250-450)
== END ==
PROVIDERS: PCP Family Medicine; Referring Provider Family Medicine; Visit Provider Family Medicine
DX: R71.8 Other abnormality of red blood cells (principal)
CPT/HCPCS: 36415; 80053; 82728; 83540; 83550; 83735; 85025

== ENCOUNTER → 2021-05-10 14:59 | Outpatient (CLI) | payer OTHER, SELFPAY ==
--- NOTE | 2021-05-10 15:01 | ECHOCS_ITS ---
Reason For Study: PALPITATIONS Procedure This was a 2D Doppler, Color Flow transthoracic echocardiogram. The study was technically difficult. Contrast injection was performed. Exam performed in department. Left Ventricle Normal LV size. Left ventricular systolic function is normal. The estimated ejection fraction is 65 %. No evidence for diastolic dysfunction. No regional wall motion abnormalities noted. Right Ventricle Normal RV size. Normal systolic function. Atria Normal left atrium. Normal right atrium. No doppler evidence for ASD. Mitral Valve There is no mitral annular calcification. Normal mitral valve. Trivial mitral valve insufficiency. Tricuspid Valve Normal tricuspid valve. Trivial tricuspid valve insufficiency. Right ventricular systolic pressure estimated to be 26 mmHg. Aortic Valve Trisinus/trileaflet aortic valve. Normal aortic valve. Pulmonic Valve The pulmonic valve is not well visualized. Great Vessels Normal sized aortic root. Pericardium/Pleural No pericardial effusion. Medication 22 gauge I.V. with prn adaptor inserted into right arm. Diluted definity 2.5ml given slow IV push to enhance endocardial definition. MMode/2D Measurements & Calculations LVIDd: 4.8 cm IVSd: 0.65 cm Ao root diam: 2.9 cm LVIDs: 3.0 cm LVPWd: 0.67 cm RVDd: 3.3 cm FS: 38.3 % LAV(MOD-bp): 44.6 ml LVAd ap4: 43.5 cm2 LVAd ap2: 45.8 cm2 LAV(MOD-bp) Indexed: 19.9 ml/m2 LVLd ap4: 9.8 cm LVLd ap2: 9.9 cm LAV(MOD-sp2): 51.1 ml EDV(MOD-sp4): 157.2 ml EDV(MOD-sp2): 178.5 ml LAV(MOD-sp4): 38.2 ml EDV(sp4-el): 164.1 ml EDV(sp2-el): 180.3 ml LVAs ap4: 24.6 cm2 LVAs ap2: 24.9 cm2 LVLs ap4: 7.7 cm LVLs ap2: 7.7 cm ESV(MOD-sp4): 64.2 ml ESV(MOD-sp2): 67.4 ml ESV(sp4-el): 66.5 ml ESV(sp2-el): 67.8 ml EF(MOD-sp4): 59.1 % EF(MOD-sp2): 62.2 % EF(sp4-el): 59.5 % SV(MOD-sp4): 92.9 ml SV(MOD-sp2): 111.1 ml SV(sp4-el): 97.6 ml LA A4 area: 16.1 cm2 LA dimension(2D): 3.6 cm RA A4 area: 11.3 cm2 Doppler Measurements & Calculations MV E max stiven: 87.2 cm/sec Lat Peak E' Stiven: 19.8 cm/sec Med Peak E' Stiven: 11.4 cm/sec MV A max stiven: 49.7 cm/sec E/E' lat: 4.4 E/E' med: 7.7 MV E/A: 1.8 Ao V2 max: 142.5 cm/sec LV V1 max: 127.3 cm/sec PA V2 max: 113.5 cm/sec Ao max P.1 mmHg LV V1 max P.5 mmHg TR max stiven: 237.7 cm/sec TR max P.6 mmHg ECHO/Echo Complete W/ Contrast Interpretation Summary The study was technically difficult. Contrast injection was performed. Left ventricular systolic function is normal. The estimated ejection fraction is 65 %. Trivial mitral valve insufficiency. Trivial tricuspid valve insufficiency. Right ventricular systolic pressure estimated to be 26 mmHg. No evidence for diastolic dysfunction. Ordering Physician: Villa Pennington Referring Physician: LUCA SANDOVAL Performed By: Kori Guerra, RDCS, RVT
== END ==
PROVIDERS: PCP Family Medicine; Referring Provider Internal Medicine Cardiovascular Disease; Visit Provider Internal Medicine Cardiovascular Disease
DX: R00.2 Palpitations (principal); Z01.810 Encounter for preprocedural cardiovascular examination; E03.8 Other specified hypothyroidism; E06.3 Autoimmune thyroiditis; E04.1 Nontoxic single thyroid nodule
CPT/HCPCS: 93271; 93306; Q9957; C8929; J3490

== ENCOUNTER 2021-07-31 12:15 | Outpatient (CLI) | payer OTHER, SELFPAY ==
[2021-07-31 15:18] LABS: Absolute Lymphocyte Count 2.21 X10^3/uL (0.83-4.51); Absolute Neutrophil Count 4.3 X10^3/uL (2.0-7.7); Basophil# 0.03 X10^3/uL; Basophil% 0.4 % (0-1); Eosinophil# 0.12 X10^3/uL; Eosinophils% 1.7 % (0-5); Hematocrit 41.5 % (37-47); Hemoglobin 13.7 g/dL (12.0-15.0); Lymphocyte # 2.21 X10^3/ul (0.83-4.51); Lymphocyte % 31.2 % (19-41); Mean Corpuscular Hgb 26.2 pg (27.0-32.0); Mean Corpuscular Volume 79.5 fL (81-99); Mean Platelet Vol. 11.9 fl (6.2-12.0); Monocyte# 0.37 X10^3/uL; Monocyte% 5.2 % (0-10); NRBC Flagged by Analyzer 0 % (0-5); Neutrophil # 4.33 X10^3/uL (2.7-7.7); Neutrophil % 61.1 % (47-70); Platelet Count 302 K/mm3 (150-450); RBC Distribution Width CV 13.7 % (11.6-14.6); RBC Distribution Width SD 39.2 fl (35.1-43.9); Red Blood Count 5.22 M/mm3 (4.2-5.4); White Blood Count 7.1 K/mm3 (4.4-11.0)
[2021-07-31 15:41] LABS: ALB/GLOB Ratio 1.1 RATIO (0.9-2.4); AST(SGOT) 37 U/L (15-37); Alanine Aminotransfer ALT/SGPT 77 U/L (13-56); Albumin, Serum 3.7 g/dL (3.2-5.0); Alkaline Phosphatase 125 U/L (45-117); Anion Gap 6 (5-15); BUN 10 mg/dL (7-18); BUN/Creat Ratio 13.6 RATIO (10-20); Calcium,Total 8.9 mg/dL (8.5-10.1); Chloride 106 mmol/L (98-107); Cholesterol 155 mg/dL (200); Creatinine, Serum 0.73 mg/dL (0.55-1.02); EST Glomerular Filtration Rate 102 mL/min (>60); Est Glom Filt Rate - Afr Amer 124 mL/min (>60); Ferritin 74 ng/mL (8-252); Globulin 3.4 g/dL (2.2-4.2); Glucose 96 mg/dL (74-106); High Density Lipoprotein 43 mg/dL; Iron 83 ug/dL (50-170); Iron Binding Capacity,Total 375 ug/dL (250-450); Potassium 3.6 mmol/L (3.5-5.1); Protein, Total 7.1 g/dL (6.4-8.2); Sodium Level 139 mmol/L (136-145); T4 Free Direct 1.37 ng/dL (0.76-1.46); Thyroid Stim Hormone (TSH) 0.63 uIU/mL (0.358-3.74); Triglycerides 111 mg/dL; Very Low Density Lipoprotein 22 mg/dL (5-40)
== END 2021-07-31 23:59 | disposition short-term general hospital (02) ==
LOC: MTLAB 12:19
PROVIDERS: PCP Family Medicine; Referring Provider Family Medicine; Visit Provider Family Medicine
DX: R71.8 Other abnormality of red blood cells (principal); E66.01 Morbid (severe) obesity due to excess calories; E06.3 Autoimmune thyroiditis
CPT/HCPCS: 36415; 80053; 80061; 82728; 83540; 83550; 84439; 84443; 85025

== ENCOUNTER 2021-09-26 16:22 | Outpatient (CLI) | payer OTHER, SELFPAY ==
[2021-09-27 08:20] LABS: Hepatitis B Surface Antibody Non-Reactive; Hepatitis B Surface Antigen Non-Reactive (Nonreactive); Hepatitis C Antibody Non-Reactive (Nonreactive)
== END 2021-09-26 23:59 | disposition home or self-care (01) ==
LOC: MTLAB 16:23
PROVIDERS: PCP Family Medicine; Referring Provider Family Medicine; Visit Provider Family Medicine
DX: R79.89 Other specified abnormal findings of blood chemistry (principal)
CPT/HCPCS: 36415; 86706; 86803; 87340

== ENCOUNTER 2021-10-18 05:53 | Day surgery (SDC) | payer OTHER, SELFPAY ==
[2021-10-18] VITALS (19 sets, daily range): BP systolic 97–136; BP diastolic 46–115; PULSE 70–98; RESP 15–22; TEMP 36.6–37.1; O2SAT 91–100; BMI 44.1
--- NOTE | 2021-10-18 | IMM_PTH ---
PATIENT: ELLEN BENOIT [place] [facility] [place] U[place][id number] AGE/SX: 25/F ROOM: RE10/18/[address]: Dr. Vin Moore MD : 1995 BED: DIS: 10/18/2021 SPEC #: [id number] RECD: 10/20/21 13:21 STATUS: KRISTAN REQ #: [id number] APURVA: 10/18/21 00:[address]: Vin Moore DEPT: IMMUNOHISTOCHEMISTRY RECD BY: Sandra Kathleen ENTERED: 10/20/21 13:22 SP TYPE: IMMUNO OTHR DR: Dr. 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 Localization is made via biotin free immunoperoxidase method. Appropriate controls are performed and reacted as expected. Results on target cell population are indicated in the following table: RESULTS: ANTIBODY / CLONE RESULT Block 1 HBME1 (HBME-1) positive CK19 (A53-B/A2.26) positive GAL3 (9C4) positive CD56 (123C3.D5) negative Block 6 HBME1 (HBME-1) positive CK19 (A53-B/A2.26) positive GAL3 (9C4) positive CD56 (123C3.D5) negative Block 10 HBME1 (HBME-1) positive CK19 (A53-B/A2.26) positive GAL3 (9C4) positive CD56 (123C3.D5) negative These tests were developed and their performance characteristics determined by [facility]. They may not have been cleared or approved by the U.S. Food and Drug Administration. The FDA has determined that such clearance or approval is not necessary. The above immunohistochemical/dualISH markers are ordered and reviewed by the Pathologist. INTERPRETATION: Thyroid, total thyroidectomy: Papillary thyroid carcinoma. Case has been reviewed in consultation with Dr. Pedro who concurs with the above diagnosis. IDC:RORY AM:bradley 10/23/2021
[2021-10-18 06:27] LABS: Internal QC Validated? YES +Cl - CLEAR BKGD
[2021-10-18 06:28] LABS: Pregnancy, Urine Negative Negative
[2021-10-18] MEDS: Lactated Ringers 1,000 ML 15 ML IV (06:30)
[2021-10-18 06:39] LABS: Hematocrit 41.4 % (37-47); Hemoglobin 13.9 g/dL (12.0-15.0); Mean Corp Hgb Conc 33.6 g/dL (32-36); Mean Corpuscular Hgb 26.7 pg (27.0-32.0); Mean Corpuscular Volume 79.6 fL (81-99); Mean Platelet Vol. 10.8 fl (6.2-12.0); Platelet Count 326 K/mm3 (150-450); RBC Distribution Width CV 12.9 % (11.6-14.6); RBC Distribution Width SD 36.3 fl (35.1-43.9); White Blood Count 6.5 K/mm3 (4.4-11.0)
--- NOTE | 2021-10-18 06:47 | PCM.HP.BLA ---
History and Physical Date of Admission: 10/18/21 Chief Complaint: discuss thyroid surgery Program Administrator Required: No Is patient in pain?: No Allergies hydrocodone [From Vicodin] Allergy (Unknown, Verified 09/26/21 15:28) Unknown band aids Allergy (Uncoded 03/22/21 07:53) Rash Medications sumatriptan succinate 25 mg tablet 25 mg PO ONCE PRN 05/22/21 [History Confirmed 09/26/21] Euthyrox 137 mcg tablet 137 mcg PO DAILY #90 tab NS 06/29/21 [Rx Confirmed 09/26/21] metoprolol succinate 50 mg tablet,extended release 24 hr 50 mg PO DAILY #30 tab 09/22/21 [Rx Confirmed 09/26/21] Is last menstrual period known: No Post menopausal: No Patient : No PFSH Medical History Abnormal mammogram of left breast Breast mass, left 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 Left breast lump Surgical History History of hip surgery (2012) History of tonsillectomy (2016) Hx of left breast biopsy (01/13/18) Status post fine needle aspiration (11/2020) Family History Father Asthma Hypertension Diabetes Cancer prostate cancer Grandmother Colon cancer Mother High cholesterol Grandfather Cancer multiple myeloma Other Alcohol abuse Heart disease Thyroid disorder Social History Smoking Status: Never smoker alcohol intake: never substance use type: does not use what type of physical activity do you participate in: other details: crossfit frequency: 3-4 times per week HPI HPI HPI: ELLEN BENOIT, is a 25 F who presents to the office today for to discuss surgical treatment of thyroid disease. I most recently seen her on February 13, 2021. At that time however she was having cardiac issues with tachycardia. Her most recent cardiology appointment was May 22, 2021. Patient was still having palpitations. She was initiated on metoprolol 50 mg daily. The patient is noted to have hypothyroidism secondary to John's disease. Concerns left thyroid nodule. 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 Patient is a 2.3 x 1.7 x 1.7 cm thyroid nodule. Both lobes are enlarged to 5.[address] Travis Leon We cannot tell the difference between benign follicular adenoma vs follicular carcinoma on FNA. There is a small possibility that the inflammation from active John's is influencing the FNA results, but the chance of malignancy in this nodule is approaching 20%. My previous procedure note of ultrasound-guided fine-needle aspiration November 25, 2020: HPI: ELLEN AU, is a 24 F who presents to the office today for surgical consultation regarding a thyroid nodule and abnormal thyroid ultrasound. The patient is referred by Dr Sb Mora and a written copy of my surgical consult recommendations will return to him. On clinical examination Dr Sb Mora identified a left thyroid nodule and pursued it with an ultrasound and laboratory. As of September 27, 2020 TSH was 7.81 and free T4 0.9 with a thyroglobulin of 51.8. The patient states that she had COVID-19 July 18, 2020. She had loss of taste. She did not require oxygen. She feels that she is completely recovered. There is no family history of thyroid cancer. She has had no symptoms no choking or pressure sensation. 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 She feels that the metoprolol has assisted with her palpitations. Also has decrease her frequency of headache. She did have Covid-02 August 2020. She does not describe any lingering effects. She denies any history of deep venous thrombosis. October 05, 2020 STUDY: THYROID ULTRASOUND REASON FOR EXAM: Female, 24 years old. THY NODULE -LT PALP BY TECHNIQUE: Ultrasound evaluation of the thyroid was performed with real-time and static silver-scale imaging. COMPARISON: None. FINDINGS: RIGHT LOBE: The right lobe of the thyroid gland is enlarged and measures 5.7 cm x 1.7 cm x 2 cm. There is a heterogeneous echotexture. There are no demonstrated solid, cystic or complex lesions. LEFT LOBE: The left lobe of the thyroid gland is enlarged and measures 5.8 cm x 2.3 cm x 2.1 cm. There is a heterogeneous echotexture. There is a 2.3 cm x 1.7 cm x 1.7 cm hypoechoic solid nodule in the lower pole of the left lobe of the thyroid. Biopsy is recommended. ISTHMUS: The isthmus is enlarged and measures 7 mm. There is a 1.4 cm x 0.6 cm x 0.5 cm benign-appearing left cervical lymph node. US/Thyroid IMPRESSION: Diffuse enlargement of the thyroid gland. 2.3 cm x 1.7 cm x 1.2 cm solid nodule in the lower pole of the left lobe of the thyroid. Biopsy recommended. Electronically Signed: Dewayne Waters MD at 19:13 EDT , Service support , ROS General General: No weight change, appetite, fatigue, colon cancer, breast cancer or weakness HEENT HEENT: No difficulty swallowing, eye injury, eye surgery, swollen glands or hoarseness Endo Endocrine: Yes thyroid disease; No diabetes mellitus, thyroid cancer, Hair loss, heat intolerance or cold intolerance Musc Musculoskeletal: No back problems, arthritis, rheumatoid arthritis, gout or joint pain Cardio Cardiovascular: No murmur, pacemaker, heart disease, atrial fibrillation, high blood pressure, heart attack, heart stent, palpitations, shortness of breat with exertion or chest pain Psych Psychiatric: No depression, anxiety or hearing voices Resp Respiratory: No shortness of breath, No sleep apnea, No cough, No COPD, No asthma, No emphysema and No wheezing Gastro Gastrointestinal: No abdominal pain, No nausea or vomiting, No diarrhea, No constipation, No blood in stool, No acid reflux, No hemorrhoids, No ulcers, No gallbladder problem and No black,tarry stools Jh Hematologic: No blood thinners, No blood disorders, No bleeding, No anemia and No blood clots Neuro Neurologic: No weakness Exam Const General: cooperative, healthy appearing, comfortable and no acute distress Nutritional Appearance: obese morbidly obese [facility] Head: normal to inspection Eyes General: appearance normal, both eyes and all related structures Neck Other: Thick anterior neck, thyroid difficult to feel, no cervical adenopathy, carotids are 3+ no bruits Resp Effort & Inspection: normal respiratory effort Auscultation: clear to auscultation bilaterally Cardio Rate: regular rate Rhythm: regular rhythm GI Palpation: soft Skin General: no rashes or lesions noted Neuro General: patient alert and patient awake Extrem General: no calf tenderness and no edema Psych Appearance: grossly normal Assessment and Plan Assessment and Plan (1) Left thyroid nodule: Status: Acute (2) 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 Vin Moore MD: 25-year-old female with John's thyroiditis and dominant left thyroid nodule. She is been on levothyroxine 137 mcg daily. Because of previous noted palpitation she was initiated on metoprolol 50 mg daily with good results. She is felt to be at increased risk for developing thyroid cancer. Recommendations for at least a left thyroid lobectomy possible subtotal thyroidectomy has been offered per Dr. Travis Leon. After discussion with the patient regarding possible treatment options and some of the intraoperative limitations at this point he would like to proceed with a total thyroidectomy pending surgical findings. I would initiate the operation on the left lobe. Pending progress and anatomy likely would proceed with a total thyroidectomy to decrease risk of future reintervention. She has had an opportunity ask and have questions answered. She is well aware aware of technical difficulties and is particularly well aware of potential risk to recurrent laryngeal nerve and parathyroids. COVID-19 restrictions have been lifted. We will schedule procedure at her discretion. I appreciate the ongoing opportunity of assisting with her surgical care. Copy: Dr Sb Mora and Dr. Travis Moore M.D., F.A.C.S. I have re-examined the patient. There are no clinical changes since date of exam.
[2021-10-18 06:57] LABS: Anion Gap 6 (5-15); BUN 15 mg/dL (7-18); BUN/Creat Ratio 17.9 RATIO (10-20); Chloride 106 mmol/L (98-107); Creatinine, Serum 0.84 mg/dL (0.55-1.02); EST Glomerular Filtration Rate 88 mL/min (>60); Est Glom Filt Rate - Afr Amer 106 mL/min (>60); Estimated Creatinine Clearance 95.84 ml/min; Glucose 115 mg/dL (74-106); Phosphorus 3.7 mg/dL (2.5-4.9); Potassium 3.9 mmol/L (3.5-5.1); Sodium Level 138 mmol/L (136-145)
--- NOTE | 2021-10-18 07:06 | EX.PCM.DISCH ---
Discharge Instructions Procedure General Surgery Diet Discharge Diet: Light diet - advance as tolerated (if you have questions about your diet instructions, please talk to you doctor.) Activity Discharge Activity: May Not Drive (for 3-5 days or while taking narcotic pain medicine.) May shower in (days): 1 Lifting Restrictions: 10 pounds Dressing / Incision Call your doctor if your incision/area has: Continuous Slow Oozing, Sudden Increased Bleeding, Increased Pain/ Swelling, Increased Redness, Foul Smelling Discharge and - Call your doctor if you observe: Fever of 101 or Higher Suture Line Care: Avoid Pulling/Pushing and Avoid Pinching/Bending Additional Dressing/Incision Instructions:: You may remove your tape dressing tomorrow and shower over your surgical glue. Follow Up Care Please Follow Up With: Vin Moore MD When: Call [phone] to make an appointment to be seen in about 7days. Test Results: Test results from this visit will be discussed in further detail at your follow-up appointment, if applicable. Discharge Plan Admission Attending Provider: Vin Moore Primary Care Provider: Sb Mora Discharge Orders/Prescriptions Prescriptions: No Action sumatriptan succinate [Imitrex] 25 mg tablet 25 mg PO ONCE PRN (Reason: MIGRAINES) RF: 0 levothyroxine 137 mcg tablet 137 mcg PO DAILY RF: 0 ascorbic acid (vitamin C) [Vitamin C] 500 mg Tablet 500 mg PO DAILY RF: 0 400 mcg Tablet,Chewable 2 tab PO DAILY RF: 0 metoprolol succinate 50 mg tablet extended release 24 hr 50 mg PO QHS RF: 0
--- NOTE | 2021-10-18 07:30 | THYROID_PTH ---
PATIENT: ELLEN BENOIT LOC: [facility] [place] U#:[id number] AGE/SX: 25/F ROOM: RE10/18/[address]: Dr. Vin Moore MD : 1995 BED: DIS: 10/18/2021 SPEC #: [id number] RECD: 10/18/21 10:38 STATUS: KRISTAN LIRA #: [id number] APURVA: 10/18/21 07:[address]: Vin Moore DEPT: SURGICAL PATHOLOGY RECD BY: Kendal Mac ENTERED: 10/18/21 11:22 SP TYPE: THYROID OTHR DR: Dr. 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 See cancer checklist below. AM:bradley 10/20/2021 COMMENT THYROID CANCER SUMMARY Procedure: Total Thyroidectomy Tumor Focality: Multifocal, three foci Tumor Size: 1 mm to 1.7 cm as below: Right lobe - 2 x 2 x 1.5 mm Isthmus ? 1 x 1 x 1 mm Left lobe ? 1.7 x 1.5 x 1.2 cm Histologic Type: papillary carcinoma, follicular variant. 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 Clinical History: Nodule of left thyroid. Pathologic Stage: T1b Nx Mx The above summary is in compliance with [employer] [place] [employer] (CAP) Cancer Protocols Checklist and [place] [employer] Committee on Cancer (AJCC), Staging Manual, 8th Ed. Immunohistochemistry ([id number]) supports the above diagnosis. Reference is made to the patient's previous left thyroid nodule, fine needle aspiration ([id number]) in which follicular lesion of undetermined significance was identified. Case has been reviewed in consultation with Dr. Pedro who concurs with the above diagnosis. IDC:SJ MICROSCOPIC DESCRIPTION Slides are reviewed. GROSS DESCRIPTION Received in fixative is one container labeled with the patient's name and designated thyroid. The specimen consists of a total thyroidectomy specimen. The right lobe measures 8.5 x 2.5 x 1 cm. The isthmus measures 3 x 1.5 x 1 cm. The left lobe of thyroid measures 4.6 x 2.7 x 2 cm. The gland as a whole weighs 17 gm. The specimen is differentially inked as follows: right lobe ? blue, left lobe ? green, isthmus ? red and entire posterior portion of the gland ? black. Serial sections reveal rubbery cut surfaces. No distinct mass lesions are identified. The gland is serially sectioned and totally submitted as follows: 1-4 ? right lobe, 5-7 ? isthmus, 8-12 ? left lobe. / AM:bradley 10/19/2021 TC:0 CPT: ADDENDUM ADDENDUM ADDENDUM ADDENDUM ADDENDUM ADDENDUM ADDENDUM ADDENDUM ADDENDUM ADDENDUM ADDENDUM ADDENDUM ADDENDUM 08/01/2022 15:27 ADDENDUM 08/01/2022 15:27 ADDENDUM 08/01/2022 15:27 ADDENDUM 08/01/2022 15:27 ADDENDUM 08/01/2022 15:27 This addendum is added to incorporate an outside pathology consultation report. The case was examined at [facility] (#[id number]) and the following diagnosis was rendered. 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 -?Two additional microscopic nodules of papillary thyroid carcinoma (0.1 cm, isthmus; 0.2 cm, right thyroid lobe). -?Chronic lymphocytic thyroiditis. Please see complete above mentioned consultation report in EMR
[2021-10-18] MEDS: Bupivacaine Mpf 0.5% 30 ML VIAL (09:49)
--- NOTE | 2021-10-18 09:56 | PCM.OPRPT ---
Problems Associated Problem List Diagnoses (1) Left thyroid nodule: (2) 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: Report of Operation Date of Procedure: 10/18/21 Pre-Operative Diagnosis: John's thyroiditis, left thyroid nodule Post-Operative Diagnosis: Same Surgery/Procedure Performed:: Total thyroidectomy Description of Surgical Findings:: Timeout informed consent was obtained. 25-year-old female was taken to the operating place upon the table underwent general endotracheal intubation esthesia. Shoulder roll was placed. Neck was gently extended. Was prepped with chlorhexidine. Clean procedure no antibiotics required. Transverse suprasternal incision was created. Sharp dissection was performed down through the subcutaneous tissues. Platysmal flaps were raised. Hemostasis obtained with electrocautery and harmonic scalpel. Strap muscles were incised vertically. The inflammatory changes of the thyroid immediately identified the strap muscles were adherent. Did a limited transection of the strap muscles bilaterally. Left lobe was addressed first and tediously dissected free. Initiated the dissection on the inferior lobe identifying the inferior parathyroid carefully doing blunt dissection using harmonic scalpel for dissection. Then I converted over the superior pole on the left. The inferior parathyroid was identified and I felt that I had identified the superior parathyroid as I was then rotating the gland somewhat anteriorly. The middle thyroidal vein was secured. Then was able to identify the course of the recurrent laryngeal nerve from carefully protected as I continued to dissect the gland off the anterior surface of the trachea. Hemostasis was used for the vast majority of the hemostasis. I then transected the ligament of Bauman. Identified the pyramidal lobe dissected that free and removed that as well. Hemostasis was nice. I then addressed the right lobe of thyroid which was slightly smaller than the left but again careful tedious dissection performed initially the inferior pole superior pole mid gland rotating it anteriorly identifying the inferior parathyroid on the right superior parathyroid on the right and the course of the recurrent laryngeal nerve. The gland was completely resected off the anterior surface of the trachea. A silk suture was placed in the anterior superior aspect of the right lobe of the thyroid. The gland was grossly inspected I did not see any adherent parathyroid tissue. The neck was inspected was noted to be hemostasis a small piece of fibrillar was placed in the side of the neck. The strap muscles were approximated midline with simple sutures of 3-0 Vicryl. The platysmal flaps were approximated with the same. Skin edges were approximated with subdermal sutures of 5-0 Vicryl. Surgical glue was applied. The periincisional area was anesthetized with 0.5% Marcaine. A total of 30 cc was used. Telfa tape dressings applied. Sponge and instrument and needle counts were reported to the surgeon to be correct. Specimen total thyroid. Drains none. Blood loss minimal. The patient was taken to the recovery area in satisfactory addition without apparent complication Vin Moore M.D., F.A.C.S. Surgeon: Vin Moore Type of Anesthesia: General and Local Anesthesiologist: Rico Dailey
--- NOTE | 2021-10-18 10:11 | SUR.PHASEI ---
ARRIVED TO PACU WITH EDEMA AT INCISION +1-2, LEFT > RIGHT. OR STAFF REPORTS DR JARRED YOU, WHO THEN CAME TO PACU TO EVAULATE. PATIENT TOO LETHARGIC/SEDATED TO CHECK VOICE AT THIS TIME.
--- NOTE | 2021-10-18 10:34 | SUR.PHASEI ---
AWAKENED, C/O NAUSEA, DRY HEAVES. WILL MEDICATE WITH ZOFRAN, QUEASEASE PROVIDED, COMFORT MEASURES. ABLE TO VERBALIZE e WITH ENCOURAGEMENT.
--- NOTE | 2021-10-18 10:50 | SUR.PHASEI ---
C/O SORE THROAT. ANTERIOR NECK EDEMA NOW APPROX +2, ICE PACK IN PLACE. PATIENT HAD BEEN DRY HEAVING AT APPROX 1034, ZOFRAN GIVEN.
--- NOTE | 2021-10-18 10:54 | SUR.PHASEI ---
REPORTS FEELING CRACKLES IN HER CHECK. FINE CRACKLES NOTED ON EXHALATION IN UPPER LOBES ONLY. ENCOURAGED COUGHING, DEEP BREATHING WHICH PATIENT STATES HELPS BRIEFLY BUT THEY COME BACK. NO CREPITUS NOTED OVER UPPER CHEST. DR WIGGINS EVALUATED AT BEDSIDE, EMMANUEL ORDERED.
[2021-10-18] MEDS: Ipratropium/Albuterol Sulfate 3 ML AMPUL.NEB INHALATION (11:13)
[2021-10-18] MEDS: traMADol 50 MG Tablet 100 MG PO (15:08)
[2021-10-18 15:27] LABS: Calcium,Total 8.7 mg/dL (8.5-10.1)
== END 2021-10-18 23:59 | disposition home or self-care (01) ==
LOC: SDC 05:54 → AC 05:56
PROVIDERS: Anesthesiology; PCP Family Medicine; Referring Provider Surgery; Visit Provider Surgery
PROC: (CPT 60252; principal; 2021-10-18 07:15)
DX: C73 Malignant neoplasm of thyroid gland (principal); E06.3 Autoimmune thyroiditis; Z80.0 Family history of malignant neoplasm of digestive organs; Z80.42 Family history of malignant neoplasm of prostate; E89.0 Postprocedural hypothyroidism; R00.2 Palpitations; E04.1 Nontoxic single thyroid nodule
CPT/HCPCS: 60252; 80048; 81025; 82310; 84100; 85027; 87426; 88307; 88341; 88342; 94640; J7120; J2405

== ENCOUNTER → 2021-11-02 | Outpatient (CLI) | payer OTHER, SELFPAY ==
[2021-11-02 12:38] LABS: Vitamin D,25 Hydroxy 26.8 ng/mL
[2021-11-02 13:12] LABS: AST(SGOT) 34 U/L (15-37); Alanine Aminotransfer ALT/SGPT 81 U/L (13-56); Albumin, Serum 3.7 g/dL (3.2-5.0); Alkaline Phosphatase 147 U/L (45-117); Anion Gap 6 (5-15); BUN 15 mg/dL (7-18); BUN/Creat Ratio 20.7 RATIO (10-20); Calcium,Total 9.1 mg/dL (8.5-10.1); Chloride 107 mmol/L (98-107); Creatinine, Serum 0.72 mg/dL (0.55-1.02); EST Glomerular Filtration Rate 104 mL/min (>60); Est Glom Filt Rate - Afr Amer 125 mL/min (>60); Globulin 3.6 g/dL (2.2-4.2); Glucose 96 mg/dL (74-106); Potassium 4.3 mmol/L (3.5-5.1); Protein, Total 7.3 g/dL (6.4-8.2); Sodium Level 139 mmol/L (136-145); T4 Free Direct 1.17 ng/dL (0.76-1.46); Thyroid Stim Hormone (TSH) 1.16 uIU/mL (0.358-3.74)
[2021-11-04 11:21] LABS: Anti-Thyroglobulin AB < 1.0 IU/mL (0.0-0.9); Thyroglobulin, Serum Qt. 1.7 ng/mL (1.5-38.5)
== END | disposition home or self-care (01) ==
LOC: BIMLAB 08:51
PROVIDERS: PCP Family Medicine; Referring Provider Internal Medicine Endocrinology, Diabetes & Metabolism; Visit Provider Internal Medicine Endocrinology, Diabetes & Metabolism
DX: E03.8 Other specified hypothyroidism (principal); C73 Malignant neoplasm of thyroid gland; E06.3 Autoimmune thyroiditis; E55.9 Vitamin D deficiency, unspecified
CPT/HCPCS: 36415; 80053; 82306; 84432; 84439; 84443; 86800

== ENCOUNTER → 2022-05-03 | Outpatient (CLI) | payer OTHER, SELFPAY ==
[2022-05-03 17:45] LABS: Absolute Neutrophil Count 6.6 X10^3/uL (2.0-7.7); Basophil# 0.04 X10^3/uL; Basophil% 0.4 % (0-1); Eosinophil# 0.13 X10^3/uL; Eosinophils% 1.3 % (0-5); Hematocrit 40.1 % (37-47); Hemoglobin 13.7 g/dL (12.0-15.0); Lymphocyte % 26.5 % (19-41); Mean Corp Hgb Conc 34.2 g/dL (32-36); Mean Corpuscular Hgb 27.8 pg (27.0-32.0); Mean Corpuscular Volume 81.3 fL (81-99); Mean Platelet Vol. 11.6 fl (6.2-12.0); Monocyte# 0.64 X10^3/uL; Monocyte% 6.3 % (0-10); NRBC Flagged by Analyzer 0 % (0-5); Neutrophil # 6.62 X10^3/uL (2.7-7.7); Platelet Count 317 K/mm3 (150-450); RBC Distribution Width CV 12.9 % (11.6-14.6); RBC Distribution Width SD 38.3 fl (35.1-43.9); Red Blood Count 4.93 M/mm3 (4.2-5.4); White Blood Count 10.2 K/mm3 (4.4-11.0)
[2022-05-03 19:27] LABS: Vitamin D,25 Hydroxy 37.4 ng/mL
[2022-05-03 20:21] LABS: ALB/GLOB Ratio 1.1 RATIO (0.9-2.4); AST(SGOT) 26 U/L (15-37); Alanine Aminotransfer ALT/SGPT 57 U/L (13-56); Albumin, Serum 3.9 g/dL (3.2-5.0); Alkaline Phosphatase 146 U/L (45-117); Anion Gap 11 (5-15); BUN 15 mg/dL (7-18); BUN/Creat Ratio 19.9 RATIO (10-20); Calcium,Total 9.6 mg/dL (8.5-10.1); Chloride 107 mmol/L (98-107); Creatinine, Serum 0.75 mg/dL (0.55-1.02); EST Glomerular Filtration Rate 99 mL/min (>60); Est Glom Filt Rate - Afr Amer 119 mL/min (>60); Ferritin 94 ng/mL (8-252); Globulin 3.4 g/dL (2.2-4.2); Glucose 88 mg/dL (74-106); Iron 47 ug/dL (50-170); Iron Binding Capacity,Total 398 ug/dL (250-450); Magnesium 2.3 mg/dL (1.6-2.6); Potassium 4.2 mmol/L (3.5-5.1); Protein, Total 7.3 g/dL (6.4-8.2); Sodium Level 143 mmol/L (136-145); Thyroid Stim Hormone (TSH) 1.74 uIU/mL (0.358-3.74)
== END | disposition home or self-care (01) ==
LOC: MFPLAB 16:08
PROVIDERS: PCP Family Medicine; Referring Provider Family Medicine; Visit Provider Family Medicine
DX: E55.9 Vitamin D deficiency, unspecified (principal); R00.2 Palpitations; R71.8 Other abnormality of red blood cells
CPT/HCPCS: 36415; 80053; 82306; 82728; 83540; 83550; 83735; 84443; 85025

== ENCOUNTER 2022-07-20 00:20 | Emergency (ER) | payer OTHER, SELFPAY ==
[2022-07-20 00:20] VITALS: BP 143/78; PULSE 97; RESP 19; TEMP 36.6; O2SAT 100; BMI 46.2
[2022-07-20] MEDS: DiphenhydrAMINE 50 MG/ML Syringe IV (00:43)
[2022-07-20] MEDS: 0.9% Normal Saline 1,000 ML 999 ML IV (00:43)
[2022-07-20] MEDS: Metoclopramide 10 MG/2 ML Vial IV (00:44)
[2022-07-20] MEDS: Ketorolac 30 MG/ML Syringe IV (00:44)
[2022-07-20] MEDS: dexAMETHasone 10 MG/ML Vial IV (00:44)
--- NOTE | 2022-07-20 01:50 | EDS_ITS ---
HPI History of Present Illness Chief Complaint: Headache Narrative Narrative: Patient is a 26-year-old female with past medical history of migraines as well as John's thyroiditis. She states that she has not had a migraine for multiple years and yesterday began with pain in the right side of her head with photophobia numbness and tingling which felt similar nature to her previous migraine. She states she took her Imitrex which used to help control her symptoms and went to sleep. She states when she awoke she felt like the headache was worse and secondary to this comes in for evaluation. She denies any fevers chills or sick symptoms prior to headache beginning and she denies any trauma. [facility] Medical History Abnormal mammogram of left breast Anxiety Breast mass, left Cardiology follow-up encounter History of echocardiogram History of irregular heartbeat 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 Left breast lump Migraine headache Non-smoker Postoperative primary hypothyroidism Thyroid disease Vitamin D deficiency Wears contact lenses Wears glasses Home Medications sumatriptan succinate 25 mg tablet (Imitrex) 25 mg PO ONCE PRN MIGRAINES 05/22/21 [History Last Taken Unknown] ascorbic acid (vitamin C) 500 mg tablet (Vitamin C) 500 mg PO DAILY 10/17/21 [History Last Taken Unknown] vitamins no.144-folic acid 400 mcg chewable tablet () 2 tab PO DAILY 10/17/21 [History Last Taken Unknown] tramadol 50 mg tablet 50 mg PO Q6H PRN pain #10 tabs 10/18/21 [Rx Last Taken Unknown] levothyroxine 150 mcg tablet 175 mcg PO DAILY 07/20/22 [History Last Taken Unknown] sumatriptan succinate 25 mg tablet (Imitrex) See Rx Instructions PO .COMPLEX #20 tabs 07/20/22 [Rx Last Taken Unknown] Allergy/AdvReac Type Severity Reaction Status Date / Time hydrocodone [From Vicodin] Allergy Unknown RASH, Verified 07/20/22 00:25 VOMITING adhesive tape Allergy Rash Verified 07/20/22 00:25 Family History Father Asthma Hypertension Diabetes Cancer prostate cancer Grandmother Colon cancer Mother High cholesterol Grandfather Cancer multiple myeloma Other Alcohol abuse Heart disease Thyroid disorder Surgical History History of hip surgery (2013) History of tonsillectomy (2017) History of total thyroidectomy (~10/2021) Hx of left breast biopsy Hx of wisdom tooth extraction Status post fine needle aspiration (11/2020) Social History Smoking Status: Never smoker alcohol intake: never substance use type: does not use what type of physical activity do you participate in: other details: crossfit frequency: 3-4 times per week ROS ROS ED Constitutional Constitutional ED: Denies chills or fever(s) Eyes Eyes: Reports other Details: Positive photophobia ENT ENT ED: Denies sore throat Cardiovascular Cardiovascular: Denies chest pain Respiratory/Chest Respiratory/Chest: Denies cough or dyspnea Gastrointestinal Gastrointestinal: Reports nausea; Denies abdominal pain, diarrhea or vomiting Genitourinary Genitourinary ED: Denies dysuria Musculoskeletal Musculoskeletal: Denies myalgias or neck pain Integumentary Denies rash Neurologic Neurologic: Reports headache(s) Hematologic/Lymphatic Hematologic/Lymphatic: Denies easy bleeding or easy bruising EXAM Physical Exam Const Vital Signs: 07/20/22 00:20 Temperature 98 F Temperature Source Oral Pulse Rate 97 Respiratory Rate 19 H Blood Pressure 143/78 H Blood Pressure Mean 99 Pulse Ox 100 Oxygen Delivery Method Room Air Positive well nourished and well developed General Appearance ED: well developed HEENT Reports moist mucous membranes Eyes PERRL and EOMs intact bilaterally Neck supple Neck Narrative: No nuchal rigidity or meningeal signs noted Resp normal respiratory effort and clear to auscultation bilaterally Cardio regular rate and regular rhythm Extremity normal to inspection Neuro oriented x3 and CN's II-XII intact bilaterally Neuro Narrative: Cranial nerves II through XII are grossly intact there are no focal neurologic deficits. No pronator drift no dysmetria no truncal ataxia. NIH stroke scale score of 0. Sensorium / Orientation: alert Psych mental status grossly normal Skin no rashes or lesions noted MDM MDM MDM Narrative Medical decision making narrative: Patient presented to the ER with stable vitals and a nonfocal neuro examination. She has a history of migraine headache and reported that the headache came on gradually and increased over the course of hours and therefore I felt no need for imaging or laboratory studies. Patient was given IV fluids Toradol Benadryl Reglan and Decadron. On reevaluation she has improvement of her headache down to a value of a 1 and neuro exam remains normal. Therefore this time with her known history of migraine headaches symptoms most consistent with an intractable migraine and the fact that it has now been improved in the ER do not feel there is need for work-up and she is otherwise safe for discharge Discharge Plan Triage Chief Complaint: Headache ED Provider: Heron Bolton Dx/Rx/DC Orders Clinical Impression: Migraine headache, 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 Instructions: ED, Migraine (Classical) Prescriptions: New sumatriptan succinate [Imitrex] 25 mg tablet See Rx Instructions .ROUTE .COMPLEX Qty: 20 0RF Rx Instructions: take 1 tab at onset of headache; if no relief may repeat 1 tab after at least 2 hrs; max = 4 tabs/24 hr No Action sumatriptan succinate [Imitrex] 25 mg tablet 25 mg PO ONCE PRN (Reason: MIGRAINES) ascorbic acid (vitamin C) [Vitamin C] 500 mg Tablet 500 mg PO DAILY 400 mcg Tablet,Chewable 2 tab PO DAILY tramadol 50 mg tablet 50 mg PO Q6H PRN (Reason: pain) Qty: 10 0RF levothyroxine 150 mcg tablet 175 mcg PO DAILY Stand Alone Forms: ED Work / School Excuse Primary Care Provider: Sb Mora Referrals: Sb Mora MD [Primary Care Provider] - Activity Restrictions/Additional Instructions: Please return to the ER should you have any further concerns Disposition Disposition: Home, Self Care
== END 2022-07-20 01:56 | disposition home or self-care (01) ==
PROVIDERS: Emergency Provider Emergency Medicine; PCP Family Medicine; Visit Provider Emergency Medicine
DX: G43.909 Migraine, unspecified, not intractable, without status migrainosus (principal); E06.3 Autoimmune thyroiditis; E89.0 Postprocedural hypothyroidism
CPT/HCPCS: 96361; 96374; 96375; 99283

== ENCOUNTER → 2022-11-27 | Outpatient (CLI) | payer OTHER, SELFPAY ==
--- NOTE | 2022-11-27 15:38 | RAD_ITS ---
STUDY: X-RAY - RIGHT FOOT CLINICAL: Female, 26 years old. PAIN IN HEEL/FOOT TECHNIQUE: 3 view(s) of the foot. COMPARISON: None. FINDINGS: Normal talus, calcaneus, and tarsal bones. Normal visualized subtalar, talonavicular, calcaneocuboid, tarsal and tarsometatarsal articulations. Normal metatarsi. Normal metatarsophalangeal joint of the great toe. Normal tibial and fibular sesamoid bones. Normal interphalangeal joint of the great toe. Normal phalanges of the great toe. Normal second through fifth metatarsophalangeal joints. Normal interphalangeal joints and phalanges of the lesser toes. The soft tissue structures are unremarkable. There is no demonstrated fracture. RAD/Foot min 3 Views IMPRESSION: Normal x-ray examination of the foot. Electronically Signed: Milad Cox MD at 21:49 EDT ,
== END | disposition home or self-care (01) ==
LOC: MTRAD 15:37
PROVIDERS: PCP Family Medicine; Referring Provider Family Medicine; Visit Provider Family Medicine
DX: M79.671 Pain in right foot (principal)
CPT/HCPCS: 73630

== ENCOUNTER 2023-01-31 04:37 | Emergency (ER) | payer OTHER, SELFPAY ==
[2023-01-31 04:38] VITALS: BP 127/77; PULSE 76; RESP 18; TEMP 35.7; O2SAT 99; BMI 46.0
--- NOTE | 2023-01-31 04:48 | EDS_ITS ---
HPI History of Present Illness Chief Complaint: Headache Informant: patient Onset/Context/Timing Onset: Days (2) Context: Gradual Timing: Continuous Quality -Headache: Positive for Similar Prior Headaches Location: Right frontal and retro-orbital Current Severity: Severe Maximum Severity: Severe Worsened by: Light Relieved by: Nothing, tried Imitrex but 24 hours after the headache started, NSAID now Associated Symptoms/Injury Associated Symptoms: Positive for Nausea and Photophobia; Negative for Fever or Vomiting Injury - KLEIN: Negative for Direct Trauma Narrative Narrative: Patient has a history of occasional migraines, this 1 has been there for 2 days and getting worse. Often triggered by stress which is what she thinks because of this 1. Last headache was in July she was here in the ER for that 1 as well. No obvious triggers otherwise here. Nauseated but no vomiting. Photophobic but no vision changes. No peripheral neurologic symptoms, confusion, fevers or chills, recent head injury, or other recent illness or [id number] medications other than the ibuprofen that she tried. [facility] Medical History Abnormal mammogram of left breast Anxiety Breast mass, left Cardiology follow-up encounter History of echocardiogram History of irregular heartbeat 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 Left breast lump Migraine headache Non-smoker Postoperative primary hypothyroidism Thyroid disease Vitamin D deficiency Wears contact lenses Wears glasses Home Medications sumatriptan succinate 25 mg tablet (Imitrex) 25 mg PO ONCE PRN MIGRAINES 05/22/21 [History Last Taken Unknown] ascorbic acid (vitamin C) 500 mg tablet (Vitamin C) 500 mg PO DAILY 10/17/21 [History Last Taken Unknown] vitamins no.144-folic acid 400 mcg chewable tablet () 2 tab PO DAILY 10/17/21 [History Last Taken Unknown] tramadol 50 mg tablet 50 mg PO Q6H PRN pain #10 tabs 10/18/21 [Rx Last Taken Unknown] levothyroxine 150 mcg tablet 175 mcg PO DAILY 07/20/22 [History Last Taken Unknown] sumatriptan succinate 25 mg tablet (Imitrex) See Rx Instructions PO .COMPLEX #20 tabs 07/20/22 [Rx Last Taken Unknown] Allergy/AdvReac Type Severity Reaction Status Date / Time hydrocodone [From Vicodin] Allergy Unknown RASH, Verified 01/31/23 04:41 VOMITING adhesive tape Allergy Rash Verified 01/31/23 04:41 Family History Father Asthma Hypertension Diabetes Cancer prostate cancer Grandmother Colon cancer Mother High cholesterol Grandfather Cancer multiple myeloma Other Alcohol abuse Heart disease Thyroid disorder Surgical History History of hip surgery (2013) History of tonsillectomy (2016) History of total thyroidectomy (~10/2021) Hx of left breast biopsy Hx of wisdom tooth extraction Status post fine needle aspiration (11/2020) Social History Smoking Status: Never smoker alcohol intake: never substance use type: does not use what type of physical activity do you participate in: other details: crossfit frequency: 3-4 times per week ROS ROS ED Constitutional Constitutional ED: Denies chills or fever(s) Eyes Eyes: Denies blurry vision or diplopia ENT ENT ED: Denies ear pain or sore throat Cardiovascular Cardiovascular: Denies chest pain or palpitations Respiratory/Chest Respiratory/Chest: Denies cough or dyspnea Gastrointestinal Gastrointestinal: Reports nausea; Denies abdominal pain, diarrhea or vomiting Genitourinary Genitourinary ED: Denies dysuria or urinary frequency Musculoskeletal Musculoskeletal: Denies back pain or myalgias Integumentary Denies abscess or rash Neurologic Neurologic: Reports headache(s); Denies paresthesias or weakness EXAM Physical Exam Const Vital Signs: 01/31/23 04:38 Temperature 96.2 F L Temperature Source Temporal Pulse Rate 76 Respiratory Rate 18 Blood Pressure 127/77 H Blood Pressure Mean 93 Pulse Ox 99 Oxygen Delivery Method Room Air HEENT Reports normocephalic and moist mucous membranes atraumatic Eyes PERRL, EOMs intact bilaterally and conjunctivae normal Eyes Narrative: photophobia Neck no lymphadenopathy, supple and no meningeal signs Resp normal respiratory effort and clear to auscultation bilaterally GI non-tender and non-distended Palpation: soft Extremity normal to inspection and full ROM Neuro oriented x3 and CN's II-XII intact bilaterally Sensorium / Orientation: awake and alert Speech: speech normal Gait (Neuro): normal gait Motor Exam: strength 5/5 throughout Psych mental status grossly normal Skin Lesions: no lesions Rashes: no rashes MDM MDM MDM Narrative Medical decision making narrative: Patient took NSAID just prior to arrival, she was given a liter of IV fluid, Reglan, Benadryl. On reevaluation she is feeling much better her symptoms are completely resolved, she feels ready to go home tolerating medications very well. Vital signs remain normal, she has had a prior headaches similar to this, without neurologic symptoms or thunderclap headache onset, so I do not think she needs advanced imaging at this time although we discussed and considered it. Discharge Plan Triage Chief Complaint: Headache ED Provider: Randy Mackey Dx/Rx/DC Orders Clinical Impression: Headache, migraine Instructions: ED, Migraine (Classical) Prescriptions: No Action sumatriptan succinate [Imitrex] 25 mg tablet 25 mg PO ONCE PRN (Reason: MIGRAINES) ascorbic acid (vitamin C) [Vitamin C] 500 mg Tablet 500 mg PO DAILY 400 mcg Tablet,Chewable 2 tab PO DAILY tramadol 50 mg tablet 50 mg PO Q6H PRN (Reason: pain) Qty: 10 0RF levothyroxine 150 mcg tablet 175 mcg PO DAILY sumatriptan succinate [Imitrex] 25 mg tablet See Rx Instructions .ROUTE .COMPLEX Qty: 20 0RF Rx Instructions: take 1 tab at onset of headache; if no relief may repeat 1 tab after at least 2 hrs; max = 4 tabs/24 hr Primary Care Provider: Sb Mora Referrals: Sb Mora MD [Primary Care Provider] - As Needed Disposition Disposition: Home, Self Care
[2023-01-31] MEDS: 0.9% Normal Saline 1,000 ML 999 ML IV (04:53)
[2023-01-31] MEDS: Metoclopramide 10 MG/2 ML Vial IV (04:54)
[2023-01-31] MEDS: DiphenhydrAMINE 50 MG/ML Syringe 25 MG IV (04:54)
[2023-01-31 05:48] VITALS: PULSE 72; RESP 18; O2SAT 98
== END 2023-01-31 05:48 | disposition home or self-care (01) ==
PROVIDERS: Emergency Provider Emergency Medicine; PCP Family Medicine; Visit Provider Emergency Medicine
DX: G43.909 Migraine, unspecified, not intractable, without status migrainosus (principal); E03.9 Hypothyroidism, unspecified
CPT/HCPCS: 96361; 96374; 96375; 99282; J7030; A4216